=== PATIENT | male | born 1985 | race Caucasian/White ===

== ENCOUNTER 2018-11-22 02:49 | Emergency (ER) | payer OTHER ==
[2018-11-22 02:53] VITALS: TEMP 97.9
[2018-11-22] MEDS ORDERED: IBUPROFEN 400 MG TAB PO STA ×2 (03:17→03:24)
[2018-11-22 03:34] VITALS: RESP 18
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
[2018-11-22 04:09] VITALS: BP 159/106; PULSE 119
--- NOTE | 2018-11-23 00:51 | CDI ---
Documentation Clarification OP Dear Dr. Kellen Holliday Please do addendum to ED report for missing HPI and Physical examination. Thank you, Bryson Cardenas Epic Analyst If you have any questions, please contact [facility] at [phone] [facility]
== END 2018-11-22 04:05 | disposition home or self-care (01) ==
LOC: EC 02:49
DX: S00.83XA Contusion of other part of head, initial encounter (principal); E11.9 Type 2 diabetes mellitus without complications; Z79.4 Long term (current) use of insulin; Z79.899 Other long term (current) drug therapy; Z88.8 Allergy status to other drugs, medicaments and biological substances; Z53.8 Procedure and treatment not carried out for other reasons; Y04.0XXA Assault by unarmed brawl or fight, initial encounter; Y92.69 Other specified industrial and construction area as the place of occurrence of the external cause; Y99.0 Civilian activity done for income or pay
CPT/HCPCS: 99283